=== PATIENT | male | born 1975 | race Caucasian/White ===

== ENCOUNTER → 2017-01-07 | Outpatient (CLI) | payer SELFPAY ==
--- NOTE | 2017-01-07 09:35 | US ---
EXAMINATION TYPE: US kidneys/renal and bladder DATE OF EXAM: 01/07/2017 9:25 AM COMPARISON: NONE CLINICAL HISTORY: 41-year-old male with hypertension I10, Chronic Kidney disease M18.9. No pain. TECHNIQUE: Multiple sonographic images of the kidneys and bladder were obtained. FINDINGS: Right Kidney: 10.5 x 5.8 x 6.6 cm Left Kidney: 11.9 x 5.9 x 5.2 cm Right Kidney: Dromedary hump without hydronephrosis. Left Kidney: No hydronephrosis. Partial distention of the bladder limits its evaluation. Neither ureteral jet is seen to course of th e exam. IMPRESSION: No hydronephrosis. Neither ureteral jet is seen during the course of the exam.
== END | disposition home or self-care (01) ==
LOC: RADUSWWP 09:04
PROVIDERS: ATTEND Family Medicine
DX: I12.9 Hypertensive chronic kidney disease with stage 1 through stage 4 chronic kidney disease, or unspecified chronic kidney disease (principal); N18.9 Chronic kidney disease, unspecified
CPT/HCPCS: 76770

== ENCOUNTER 2023-01-28 01:20 | Inpatient (IN) | payer OTHER ==
[2023-01-28] MEDS ORDERED: SODIUM CHLORIDE 0.9% 1,000 ML IV STA (01:36)
[2023-01-28] MEDS ORDERED: ONDANSETRON 4 MG/2 ML VIAL IVP STA (01:59)
[2023-01-28] MEDS ORDERED: KETOROLAC 15 MG/ML 1 ML VIAL IVP STA (01:59)
[2023-01-28 02:16] LABS: Basophils % (A) 0 %; Eosinophils # (A) 0.1 k/uL (0-0.7); Eosinophils % (A) 1 %; HCT 50.1 % (39.0-53.0); HGB 16.8 gm/dL (13.0-17.5); Lymphocytes # (A) 1.8 k/uL (1.0-4.8); Lymphocytes % (A) 12 %; MCH 31.4 pg (25.0-35.0); MCHC 33.6 g/dL (31.0-37.0); MCV 93.5 fL (80.0-100.0); Mean Platelet Volume 8.9; Monocytes # (A) 1.2 k/uL (0-1.0); Monocytes % (A) 9 %; Neutrophils # (A) 10.9 k/uL (1.3-7.7); Neutrophils % (A) 77 %; Platelet Count 270 k/uL (150-450); RBC 5.36 m/uL (4.30-5.90); RDW 13.5 % (11.5-15.5); WBC 14.2 k/uL (3.8-10.6)
[2023-01-28 02:18] LABS: ALT 27 U/L (4-49); AST 32 U/L (17-59); African American GFR (CKD) >90 (>60 ml/min/1.73 sqM); Albumin 4.3 g/dL (3.5-5.0); Alkaline Phosphatase 71 U/L (38-126); Anion Gap 15 mmol/L; Blood Urea Nitrogen 13 mg/dL (9-20); Calcium 9.4 mg/dL (8.4-10.2); Carbon Dioxide 23 mmol/L (22-30); Chloride 102 mmol/L (98-107); Glucose 139 mg/dL (74-99); Lipase 258 U/L (23-300); Non-African American GFR(CKD) >90 (>60 ml/min/1.73 sqM); Potassium 3.7 mmol/L (3.5-5.1); Sodium 140 mmol/L (137-145); Total Protein 7.2 g/dL (6.3-8.2)
--- NOTE | 2023-01-28 02:42 | ED ---
Abdominal Pain HPI - General Chief Complaint: Abdominal Pain Stated Complaint: abd pain Time Seen by Provider: 01/28/23 01:33 Source: patient Mode of arrival: ambulatory - History of Present Illness Initial Comments: Patient is a 47 year-old male who presents to the emergency department with a chief complaint abdominal pain.Patient states earlier this morning he had upper abdominal pain that almost completely went away. He went to work, came home and had dinner and then started to have pain in his right lower abdomen with radiation to his right testicle. Patient was on a lower pain which has mostly subsided since arriving to the emergency department. He has nausea without vomiting. No fever or chills. No burning with urination, blood in the urine, urinary frequency/urgency, penile discharge. No diarrhea, constipation, blood in stool. Last bowel movement was this morning which patient states was normal. No history of kidney stone. - Related Data Allergies Allergy/AdvReac Type Severity Reaction Status Date / Time No Known Allergies Allergy Verified 01/28/23 01:30 Review of Systems ROS Statement: Those systems with pertinent positive or pertinent negative responses have been documented in the HPI. ROS Other: All systems not noted in ROS Statement are negative. Past Medical History Past Medical History: Diabetes Mellitus, Hypertension History of Any Multi-Drug Resistant Organisms: None Reported Past Surgical History: No Surgical Hx Reported Past Psychological History: No Psychological Hx Reported Smoking Status: Never smoker Past Alcohol Use History: Rare Past Drug Use History: None Reported General Exam General appearance: alert, in no apparent distress Head exam: Present: atraumatic, normocephalic, normal inspection Eye exam: Present: normal appearance, PERRL, EOMI. Absent: scleral icterus, conjunctival injection, periorbital swelling Respiratory exam: Present: normal lung sounds bilaterally. Absent: respiratory distress, wheezes, rales, rhonchi, stridor Cardiovascular Exam: Present: regular rate, normal rhythm, normal heart sounds. Absent: systolic murmur, diastolic murmur, rubs, gallop, clicks GI/Abdominal exam: Present: soft, tenderness (RLQ mild), normal bowel sounds. Absent: distended, guarding, rebound, rigid Neurological exam: Present: alert, oriented X3, CN II-XII intact Psychiatric exam: Present: normal affect, normal mood Skin exam: Present: warm, dry, intact, normal color. Absent: rash Course Vital Signs 01/28/23 01:26 Temperature 98.4 F Pulse Rate 93 Respiratory 16 Rate Blood Pressure 128/82 O2 Sat by Pulse 98 Oximetry Medical Decision Making - Medical Decision Making Was pt. sent in by a medical professional or institution (ERIN Mercedes, [employer], urgent care, hospital, or jail...) When possible be specific @ -No Did you speak to anyone other than the patient for history (EMS, parent, family, police, friend...)? What history was obtained from this source @ -No Did you review nursing and triage notes (agree or disagree)? Why? @ -I reviewed and agree with nursing and triage notes Were old charts reviewed (outside hosp., previous admission, EMS record, old EKG, old radiological studies, urgent care reports/EKG's, jail records)? Report findings @ -No old charts were reviewed Differential Diagnosis (chest pain, altered mental status, abdominal pain women, abdominal pain men, vaginal bleeding, weakness, fever, dyspnea, syncope, headache, dizziness, GI bleed, back pain, seizure, CVA, palpatations, mental health)? @ -Differential Abdominal Pain Men: Appendicitis, cholecystitis, diverticulosis, ischemic bowel, pancreatitis, hepatitis, UTI, gastroenteritis, AAA, incarcerated hernia, bowel obstruction, constipation, inflammatory bowel, hepatitis, peptic ulcer disease, splenic infarction, perforated viscus, testicular torsion, this is not meant to be an all-inclusive list EKG interpreted by me (3pts min.). @ -As above X-rays interpreted by me (1pt min.). @ -None done CT interpreted by me (1pt min.). @ -Yes, CT the abdomen and pelvis shows acute appendicitis. There are also incidental findings including cirrhosis and splenomegaly suggestive of portal hypertensiion. Trace ascites. Mildly enlarged prostate with thick bladder wall U/S interpreted by me (1pt. min.). @ -None done What testing was considered but not performed or refused? (CT, X-rays, U/S, labs)? Why? @ -None What meds were considered but not given or refused? Why? @ -None Did you discuss the management of the patient with other professionals (professionals i.e. ERIN Mercedes, [employer] WORKER, lab, RT, psych nurse, social science research assistant, hazardous substances engineer, te acher, community service patrol officer, caseworker protective services)? Give summary @ -No Was smoking cessation discussed for >3mins.? @ -No Was critical care preformed (if so, how long)? @ -No Were there social determinants of health that impacted care today? How? (Homelessness, low income, unemployed, alcoholism, drug addiction, transportation, low edu. Level, literacy, decrease access to med. care, fci, rehab)? @ -No Was there de-escalation of care discussed even if they declined (Discuss DNR or withdrawal of care, Hospice)? DNR status @ -No What co-morbidities impacted this encounter? (DM, HTN, Smoking, COPD, CAD, Cancer, CVA, ARF, Chemo, Hep., AIDS, mental health diagnosis, sleep apnea, morbid obesity)? @ -None Was patient admitted / discharged? Hospital course, mention meds given and rou te, prescriptions, significant lab abnormalities, going to OR and other pertinent info. @ -Patient presenting for abdominal pain.Well-appearing and in no apparent distress. Has little pain currently. Laboratory studies obtained. There is leukocytosis of 14.2 with left shift. Other laboratory studies are relatively unremarkable. CT the abdomen and pelvis shows acute appendicitis without evidence of free fluid or abscess. Blood cultures obtained IV antibiotics initiated. Results discussed with patient who will be admitted to Dr. Alston Undiagnosed new problem with uncertain prognosis? @ -No Drug Therapy requiring intensive monitoring for toxicity (Heparin, Nitro, Insulin, Cardizem)? @ -No Were any procedures done? @ -No Diagnosis/symptom? @ -appendicitis Acute, or Chronic, or Acute on Chronic? @ -acute Uncomplicated (without systemic symptoms) or Complicated (systemic symptoms)? @ -uncomplicated Side effects of treatment? @ -No Exacerbation, Progression, or Severe Exacerbation? @ -No Poses a threat to life or bodily function? How? (Chest pain, USA, PA, pneumonia, PE, COPD, DKA, ARF, appy, cholecystitis, CVA, Diverticulitis, Homicidal, Suicidal, threat to staff... and all critical care pts) @ -No Dr. Biswas is my attending - Lab Data Result diagrams: 01/28/23 01:47 01/28/23 01:47 Lab Results 01/28/23 01/28/23 01/28/23 Range/Units 01:47 01:47 01:47 WBC 14.2 H (3.8-10.6) k/uL RBC 5.36 (4.30-5.90) m/uL Hgb 16.8 (13.0-17.5) gm/dL Hct 50.1 (39.0-53.0) % MCV 93.5 (80.0-100.0) fL MCH 31.4 (25.0-35.0) pg MCHC 33.6 (31.0-37.0) g/dL RDW 13.5 (11.5-15.5) % Plt Count 270 (150-450) k/uL MPV 8.9 Neutrophils % 77 % Lymphocytes % 12 % Monocytes % 9 % Eosinophils % 1 % Basophils % 0 % Neutrophils # 10.9 H (1.3-7.7) k/uL Lymphocytes # 1.8 (1.0-4.8) k/uL Monocytes # 1.2 H (0-1.0) k/uL Eosinophils # 0.1 (0-0.7) k/uL Basophils # 0.0 (0-0.2) k/uL Sodium 140 (137-145) mmol/L Potassium 3.7 (3.5-5.1) mmol/L Chloride 102 (98-107) mmol/L Carbon Dioxide 23 (22-30) mmol/L Anion Gap 15 mmol/L BUN 13 (9-20) mg/dL Creatinine 0.74 (0.66-1.25) mg/dL Est GFR (CKD-EPI)AfAm >90 (>60 ml/min/1.73 sqM) Est GFR (CKD-EPI)NonAf >90 (>60 ml/min/1.73 sqM) Glucose 139 H (74-99) mg/dL Plasma Lactic Acid Marcel 1.3 (0.7-2.0) mmol/L Calcium 9.4 (8.4-10.2) mg/dL Total Bilirubin 1.0 (0.2-1.3) mg/dL AST 32 (17-59) U/L ALT 27 (4-49) U/L Alkaline Phosphatase 71 (38-126) U/L Total Protein 7.2 (6.3-8.2) g/dL Albumin 4.3 (3.5-5.0) g/dL Lipase 258 (23-300) U/L Urine Color Urine Appearance (Clear) Urine pH (5.0-8.0) Ur Specific [place] (1.001-1.035) Urine Protein (Negative) Urine Glucose (UA) (Negative) Urine Ketones (Negative) Urine Blood (Negative) Urine Nitrite (Negative) Urine Bilirubin (Negative) Urine Urobilinogen (<2.0) mg/dL Ur Leukocyte Esterase (Negative) 01/28/23 Range/Units 02:24 WBC (3.8-10.6) k/uL RBC (4.30-5.90) m/uL Hgb (13.0-17.5) gm/dL Hct (39.0-53.0) % MCV (80.0-100.0) fL MCH (25.0-35.0) pg MCHC (31.0-37.0) g/dL RDW (11.5-15.5) % Plt Count (150-450) k/uL MPV Neutrophils % % Lymphocytes % % Monocytes % % Eosinophils % % Basophils % % Neutrophils # (1.3-7.7) k/uL Lymphocytes # (1.0-4.8) k/uL Monocytes # (0-1.0) k/uL Eosinophils # (0-0.7) k/uL Basophils # (0-0.2) k/uL Sodium (137-145) mmol/L Potassium (3.5-5.1) mmol/L Chloride (98-107) mmol/L Carbon Dioxide (22-30) mmol/L Anion Gap mmol/L BUN (9-20) mg/dL Creatinine (0.66-1.25) mg/dL Est GFR (CKD-EPI)AfAm (>60 ml/min/1.73 sqM) Est GFR (CKD-EPI)NonAf (>60 ml/min/1.73 sqM) Glucose (74-99) mg/dL Plasma Lactic Acid Marcel (0.7-2.0) mmol/L Calcium (8.4-10.2) mg/dL Total Bilirubin (0.2-1.3) mg/dL AST (17-59) U/L ALT (4-49) U/L Alkaline Phosphatase (38-126) U/L Total Protein (6.3-8.2) g/dL Albumin (3.5-5.0) g/dL Lipase (23-300) U/L Urine Color Yellow Urine Appearance Clear (Clear) Urine pH 6.0 (5.0-8.0) Ur Specific [place] 1.032 (1.001-1.035) Urine Protein Trace H (Negative) Urine Glucose (UA) Negative (Negative) Urine Ketones 1+ H (Negative) Urine Blood Negative (Negative) Urine Nitrite Negative (Negative) Urine Bilirubin Negative (Negative) Urine Urobilinogen <2.0 (<2.0) mg/dL Ur Leukocyte Esterase Negative (Negative) Disposition Clinical Impression: Appendicitis Disposition: ADMITTED IP TO THIS HOSP Condition: Fair Referrals: Chris Keith MD [Primary Care Provider] - 1-2 days
[2023-01-28 02:51] LABS: Appearance,Urine Clear (Clear); Bilirubin,Urine Negative (Negative); Blood,Urine Negative (Negative); Color,Urine Yellow; Glucose,Urine (UA) Negative (Negative); Ketones,Urine 1+ (Negative); Leukocyte Esterase,Urine Negative (Negative); Nitrite,Urine Negative (Negative); Protein,Urine Trace (Negative); Specific Gravity,Urine 1.032 (1.001-1.035); Urobilinogen,Urine <2.0 mg/dL (<2.0)
--- NOTE | 2023-01-28 03:15 | CT ---
EXAM: CT Abdomen and Pelvis Without Intravenous Contrast CLINICAL HISTORY: ITS.REASON CT Reason: pain TECHNIQUE: Axial computed tomography images of the abdomen and pelvis without intravenous contrast. CTDI is 15.7 mGy and DLP is 1043.4 mGy-cm. This CT exam was performed using one or more of the following dose reduction techniques: automated exposure control, adjustment of the mA and/or kV according to patient size, and/or use of iterative reconstruction technique. COMPARISON: No relevant prior studies available. FINDINGS: ABDOMEN: Liver: nodular . Gallbladder and bile ducts: cholelithiasis. Pancreas: No ductal dilation. Spleen: enlarged. Adrenals: Unremarkable. Kidneys and ureters: No obstructing stones. No hydronephrosis. Stomach and bowel: No bowel obstruction. No bowel wall thickening. Colonic diverticulosis. PELVIS: Appendix: Thickened to 15 mm with high density material. Bladder: No stones. Thickened bladder Reproductive: Enlarged ABDOMEN and PELVIS: Intraperitoneal space: Trace ascites. Bones/joints: No acute fractures. Moderate spinal canal stenosis at L3-4 from degenerative changes. Soft tissues: Unremarkable. Vasculature: No abdominal aortic aneurysm. Lymph nodes: No enlarged lymph nodes. IMPRESSION: 1. Acute appendicitis. 2. Cirrhosis and splenomegaly. Suggestive of portal hypertension. Trace ascites. 3. Bowel wall likely not covered for free 4. Mildly enlarged prostate with thick bladder wall
[2023-01-28] MEDS ORDERED: PIPERACILLIN-TAZOBACTAM 3.375 GM in SODIUM CHLORIDE 0.9% 100 ML IVPB STA (03:19)
[2023-01-28] MEDS ORDERED: NALOXONE 0.4 MG/ML 1 ML VIAL IV PRN (03:31)
[2023-01-28] MEDS ORDERED: MORPHINE SULFATE 4 MG/ML SYRINGE IVP STA (03:39)
[2023-01-28] MEDS ORDERED: PIPERACILLIN-TAZOBACTAM 3.375 GM in SODIUM CHLORIDE 0.9% 100 ML IVPB ONE (03:50)
[2023-01-28] MEDS: SODIUM CHLORIDE 0.9% 1,000 ML IV SCH ×4 (03:58→20:30)
[2023-01-28] MEDS ORDERED: HYDROmorphone 1 MG/ML 1 ML SYRINGE IM PRN (06:59)
[2023-01-28] MEDS ORDERED: ONDANSETRON 4 MG/2 ML VIAL IVP PRN (07:00)
[2023-01-28] MEDS: HYDROmorphone 1 MG/ML 1 ML SYRINGE IVP PRN ×2 (07:05→10:56)
[2023-01-28] MEDS ORDERED: DEXTROSE 50% SYRINGE 50 ML IVP PRN ×2 (08:11)
--- NOTE | 2023-01-28 08:30 | P.CONS ---
History of Present Illness - Reason for Consult Consult date: 01/28/23 Diabetes with medical management - Chief Complaint Abdominal pain - History of Present Illness This is a 47-year-old white male who is essentially admitted after having epigastric pain. He came home from work and started relaxing. 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 The patient was watching a movie and suddenly developed right lower quadrant pain. Previously when he came home with epigastric pain, Motrin relieved his symptomatology. He felt as though he is going to have diarrhea but the pain did not resolve. Evaluation in the ER showed computed tomography scan with acute appendicitis. Patient has an underlying history of hypertension diabetes he's had significant great control but blood sugar has been slightly elevated last several days. No sweats no c hest pain Review of Systems Constitutional: Denies fever Eyes: denies blurred vision, denies pain Ears, nose, mouth and throat: Denies headache, Denies sore throat Cardiovascular: Denies chest pain, Denies shortness of breath Respiratory: Denies cough Gastrointestinal: Reports abdominal pain, Reports bloating, Denies BRBPR Musculoskeletal: Denies myalgias Past Medical History Past Medical History: Diabetes Mellitus, Hypertension History of Any Multi-Drug Resistant Organisms: None Reported Past Surgical History: No Surgical Hx Reported Past Psychological History: No Psychological Hx Reported Smoking Status: Never smoker Past Alcohol Use History: Rare Past Drug Use History: None Reported Medications and Allergies Home Medications Medication Instructions Recorded Confirmed Type Cetirizine HCl [Zyrtec] 10 mg PO HS 01/28/23 01/28/23 History Dulaglutide [Trulicity] 1.5 mg SQ FR 01/28/23 01/28/23 History Fluticasone Nasal [place] [Flonase 2 spr EA NOSTRIL DAILY 01/28/23 01/28/23 History Nasal [place]] Irbesartan/Hydrochlorothiazide 1 tab PO HS 01/28/23 01/28/23 History [Avalide 300-12.5 mg Tablet] Magnesium Oxide [Magnesium] 500 mg PO HS 01/28/23 01/28/23 History Allergies Allergy/AdvReac Type Severity Reaction Status Date / Time No Known Allergies Allergy Unverified 01/28/23 07:32 Physical Exam Vitals: Vital Signs Temp Pulse Resp BP Pulse Ox 01/28/23 07:00 98.6 F 80 16 110/68 92 L 01/28/23 05:19 98.6 F 82 18 106/58 97 01/28/23 01:26 98.4 F 93 16 128/82 98 Intake and Output 01/27/23 01/28/23 01/28/23 22:59 06:59 14:59 Other: Weight 104.78 kg - Constitutional General appearance: average body habitus, cooperative, no disheveled - Respiratory Respiratory: bilateral: CTA - Cardiovascular Rhythm: regular Heart sounds: normal: S1, S2 Abnormal Heart Sounds: no S3 Gallop - Gastrointestinal General gastrointestinal: distended, tenderness Localized gastrointestinal: tender: RLQ - Integumentary Integumentary: no cellulitis - Psychiatric Psychiatric: A&O x's 3 Results CBC & Chem 7: 01/28/23 01:47 01/28/23 01:47 Labs: Abnormal Lab Results - Last 24 Hours (Table) 01/28/23 01/28/23 01/28/23 Range/Units 01:47 01:47 02:24 WBC 14.2 H (3.8-10.6) k/uL Neutrophils # 10.9 H (1.3-7.7) k/uL Monocytes # 1.2 H (0-1.0) k/uL Glucose 139 H (74-99) mg/dL Urine Protein Trace H (Negative) Urine Ketones 1+ H (Negative) Assessment and Plan (1) Diabetes Current Visit: Yes Status: Acute Code(s): E11.9 - TYPE 2 DIABETES MELLITUS WITHOUT COMPLICATIONS SNOMED Code(s): 83781396 (2) Hypertension Current Visit: Yes Status: Acute Code(s): I10 - ESSENTIAL (PRIMARY) HYPERTENSION SNOMED Code(s): 75271545 (3) Appendicitis Current Visit: Yes Status: Acute Code(s): K37 - UNSPECIFIED APPENDICITIS SNOMED Code(s): 49837434 Plan: Surgical intervention pending. Prep Place on sliding scale. Check CBC and CMP in a.m. Prognosis and outcomes discussed with the patient. He understands risks and benefits. We'll continue to follow. Appreciate consultation
[2023-01-28] MEDS ORDERED: IV FLUID CONTINUATION 1,000 ML IV ONE (13:28)
[2023-01-28 13:30] LABS: Glucose,Whole Blood 140 mg/dL (70-110)
[2023-01-28] MEDS ORDERED: DEXAMETHASONE SOD PHOSPHATE 4 MG/ML 1 ML VIAL IV ONE (13:43)
[2023-01-28] MEDS ORDERED: ONDANSETRON 4 MG/2 ML VIAL IVP ONE (13:43)
[2023-01-28] MEDS ORDERED: HEPARIN SODIUM,PORCINE/PF 5,000 UNIT/0.5 ML SYRINGE SQ ONE (13:59)
[2023-01-28] MEDS ORDERED: metroNIDAZOLE-NS PMX 500 MG in SALINE 1 100ML.BAG IVPB STA (14:02)
[2023-01-28] MEDS ORDERED: NEOSTIGMINE 1 MG/ML 10 ML VIAL ONE (14:24)
[2023-01-28] MEDS ORDERED: SODIUM CHLORIDE 0.9% 100 ML BAG ONE (14:24)
[2023-01-28] MEDS ORDERED: fentaNYL (PF) 50 MCG/ML 2 ML AMP ONE (14:24)
[2023-01-28] MEDS ORDERED: ROCURONIUM 10 MG/ML (5 ML VIAL) IV ONE (14:24)
[2023-01-28] MEDS ORDERED: PROPOFOL 10 MG/ML 50 ML VIAL IV ONE (14:24)
[2023-01-28] MEDS ORDERED: LIDOCAINE 2% INJ 20 MG/ML (2 ML VIAL) ONE (14:24)
[2023-01-28] MEDS ORDERED: HYDROmorphone (PF) 1 MG/ML ONE (14:24)
[2023-01-28] MEDS ORDERED: GLYCOPYRROLATE 0.2 MG/ML 2 ML VIAL ONE (14:24)
[2023-01-28] MEDS ORDERED: KETOROLAC 15 MG/ML 1 ML VIAL ONE (14:24)
[2023-01-28] MEDS ORDERED: MIDAZOLAM 2 MG/2 ML VIAL ONE (14:24)
[2023-01-28] MEDS ORDERED: SUCCINYLCHOLINE CHLORIDE 200 MG/10 ML VIAL IV ONE (14:24)
[2023-01-28] MEDS ORDERED: ceFAZolin 1,000 MG VIAL ONE (14:24)
[2023-01-28] MEDS ORDERED: PHENYLEPHRINE-0.9% NACL SYG 1,000 MCG/10 ML SYRINGE ONE (14:24)
[2023-01-28] MEDS ORDERED: SODIUM CHLORIDE 0.9% 100 ML with ceFAZolin 2,000 MG IV ONE ×2 (14:27)
[2023-01-28] MEDS ORDERED: BUPIVACAINE (PF) 0.25% 30 ML VIAL SQ ONE ×3 (14:32→14:49)
--- NOTE | 2023-01-28 14:32 | P.GSHP ---
History of Present Illness H&P Date: 01/28/23 Chief Complaint: acute appendicitis 47-year-old male came to the hospital yesterday with right lower quadrant abdominal pain. Pain began possibly Tuesday definite was present yesterday while he was at work. He had some chills. Some nausea. No vomiting. Past Medical History Past Medical History: Diabetes Mellitus, Hypertension History of Any Multi-Drug Resistant Organisms: None Reported Past Surgical History: Adenoidectomy, Tonsillectomy Additional Past Surgical History / Comment(s): UP3, sinus x2 Past Anesthesia/Blood Transfusion Reactions: Unable to Obtain Past Psychological History: No Psychological Hx Reported Smoking Status: Never smoker Past Alcohol Use History: Rare Past Drug Use History: None Reported Medications and Allergies Home Medications Medication Instructions Recorded Confirmed Type Cetirizine HCl [Zyrtec] 10 mg PO HS 01/28/23 01/28/23 History Dulaglutide [Trulicity] 1.5 mg SQ FR 01/28/23 01/28/23 History Fluticasone Nasal [place] [Flonase 2 spr EA NOSTRIL DAILY 01/28/23 01/28/23 History Nasal [place]] Irbesartan/Hydrochlorothiazide 1 tab PO HS 01/28/23 01/28/23 History [Avalide 300-12.5 mg Tablet] Magnesium Oxide [Magnesium] 500 mg PO HS 01/28/23 01/28/23 History Allergies Allergy/AdvReac Type Severity Reaction Status Date / Time No Known Allergies Allergy Unverified 01/28/23 07:32 Surgical - Exam Vital Signs Temp Pulse Resp BP Pulse Ox 98.4 F 93 16 128/82 98 01/28/23 01:26 01/28/23 01:26 01/28/23 01:26 01/28/23 01:26 01/28/23 01:26 Physical exam: General: Well-developed, well-nourished HEENT: Normocephalic, sclerae nonicteric Abdomen: Right lower quadrant tenderness, nondistended Extremities: No edema Neuro: Alert and oriented Results - Labs 01/28/23 01:47 01/28/23 01:47 Abnormal Lab Results - Last 24 Hours (Table) 01/28/23 01/28/23 01/28/23 Range/Units 01:47 01:47 02:24 WBC 14.2 H (3.8-10.6) k/uL Neutrophils # 10.9 H (1.3-7.7) k/uL Monocytes # 1.2 H (0-1.0) k/uL Glucose 139 H (74-99) mg/dL POC Glucose (mg/dL) (70-110) mg/dL Urine Protein Trace H (Negative) Urine Ketones 1+ H (Negative) 01/28/23 Range/Units 13:25 WBC (3.8-10.6) k/uL Neutrophils # (1.3-7.7) k/uL Monocytes # (0-1.0) k/uL Glucose (74-99) mg/dL POC Glucose (mg/dL) 140 H (70-110) mg/dL Urine Protein (Negative) Urine Ketones (Negative) Diabetes panel 01/28/23 Range/Units 01:47 Sodium 140 (137-145) mmol/L Potassium 3.7 (3.5-5.1) mmol/L Chloride 102 (98-107) mmol/L Carbon Dioxide 23 (22-30) mmol/L BUN 13 (9-20) mg/dL Creatinine 0.74 (0.66-1.25) mg/dL Glucose 139 H (74-99) mg/dL Calcium 9.4 (8.4-10.2) mg/dL AST 32 (17-59) U/L ALT 27 (4-49) U/L Alkaline Phosphatase 71 (38-126) U/L Total Protein 7.2 (6.3-8.2) g/dL Albumin 4.3 (3.5-5.0) g/dL Calcium panel 01/28/23 Range/Units 01:47 Calcium 9.4 (8.4-10.2) mg/dL Albumin 4.3 (3.5-5.0) g/dL Pituitary panel 01/28/23 Range/Units 01:47 Sodium 140 (137-145) mmol/L Potassium 3.7 (3.5-5.1) mmol/L Chloride 102 (98-107) mmol/L Carbon Dioxide 23 (22-30) mmol/L BUN 13 (9-20) mg/dL Creatinine 0.74 (0.66-1.25) mg/dL Glucose 139 H (74-99) mg/dL Calcium 9.4 (8.4-10.2) mg/dL Adrenal panel 01/28/23 Range/Units 01:47 Sodium 140 (137-145) mmol/L Potassium 3.7 (3.5-5.1) mmol/L Chloride 102 (98-107) mmol/L Carbon Dioxide 23 (22-30) mmol/L BUN 13 (9-20) mg/dL Creatinine 0.74 (0.66-1.25) mg/dL Glucose 139 H (74-99) mg/dL Calcium 9.4 (8.4-10.2) mg/dL Total Bilirubin 1.0 (0.2-1.3) mg/dL AST 32 (17-59) U/L ALT 27 (4-49) U/L Alkaline Phosphatase 71 (38-126) U/L Total Protein 7.2 (6.3-8.2) g/dL Albumin 4.3 (3.5-5.0) g/dL Assessment and Plan (1) Appendicitis Narrative/Plan: 47-year-old male with acute appendicitis. Will proceed with laparoscopic, possible open appendectomy at this time. Risks of bleeding, infection, abscess, hernia, bladder and bowel injury, ureteral injury, conversion to an open procedure reviewed. He understands and wishes to proceed. Current Visit: Yes Status: Acute Code(s): K37 - UNSPECIFIED APPENDICITIS SNOMED Code(s): 84467228
[2023-01-28] MEDS ORDERED: LACTATED RINGERS 1,000 ML IV ONE (14:49)
[2023-01-28] MEDS ORDERED: ACETAMINOPHEN TAB 325 MG TAB PO PRN (15:49)
[2023-01-28] MEDS ORDERED: HYDROmorphone 0.5 MG/0.5 ML SYRINGE IVP PRN (15:49)
[2023-01-28] MEDS ORDERED: HYDROcodone/APAP 5-325MG 1 EACH TAB PO PRN ×2 (15:49)
--- NOTE | 2023-01-28 16:03 | P.OP ---
Date of Procedure: 01/28/23 Procedure(s) Performed: PREOPERATIVE DIAGNOSIS: Acute appendicitis POSTOPERATIVE DIAGNOSIS: Ruptured acute appendicitis with peritonitis PROCEDURE: Laparoscopic appendectomy SURGEON: Gamaliel EBL: 10 mL ANESTHESIA: General COMPLICATIONS: None OPERATIVE PROCEDURE: The patient was brought and placed on the operating table in the supine position. The patient was placed under general anesthesia. The abdomen was prepped and draped in the usual sterile fashion. A small vertical infraumbilical incision was made. The fascia was retracted anteriorly with Ricci forceps. The Veress needle was advanced into the peritoneal cavity. The saline drop test was normal. Insufflation took place to 15 mmHg. A 5 mm trocar was then placed. An additional 5 mm suprapubic trocar was placed under direct visualization as well as a 12 mm left lower quadrant trocar under direct visualization. The patient had purulent fluid within the right lower quadrant and pelvis. This was evacuated immediately. The peritoneum in the right lower quadrant was significantly inflamed and indurated consistent with peritonitis. The patient had a loop of small bowel that was chronically adherent to the right lower abdominal sidewall. Blunt dissection and sharp dissection took place to mobilize the colon and ileum medially. The veil of [place] was seen and behind that was the appendix that was gangrenous in appearance and had a perforation present. There was some stool that was evacuated from the appendix itself. Careful dissection revealed the junction with the base of the cecum. The base of the appendix was divided using a linear 45 mm intestinal stapler. The mesentery itself was then divided using the LigaSure device. The area was then irrigated. The remainder of the abdominal cavity was thoroughly irrigated at that time as well. No further purulence or bleeding was seen. The appendix was brought out of the peritoneal cavity through the left lower quadrant trocar site with an Endo Catch bag. The fascia at the 12 mm site was closed using a Maxime Viki 0 Vicryl stitch. The skin at all 3 sites was closed using 4-0 Monocryl sutures. Skin glue was then applied. DISPOSITION: Stable to recovery room
[2023-01-28] MEDS: HEPARIN SODIUM,PORCINE/PF 5,000 UNIT/0.5 ML SYRINGE SQ SCH (17:14)
[2023-01-28] MEDS: PIPERACILLIN-TAZOBACTAM 3.375 GM in SODIUM CHLORIDE 0.9% 100 ML IVPB SCH (17:15)
[2023-01-28 17:36] LABS: Glucose,Whole Blood 145 mg/dL (70-110)
[2023-01-28] MEDS: DOCUSATE 100 MG CAP PO SCH (20:31)
[2023-01-28 20:35] LABS: Glucose,Whole Blood 180 mg/dL (70-110)
[2023-01-29] MEDS: HEPARIN SODIUM,PORCINE/PF 5,000 UNIT/0.5 ML SYRINGE SQ SCH ×2 (00:49→08:56)
[2023-01-29] MEDS: PIPERACILLIN-TAZOBACTAM 3.375 GM in SODIUM CHLORIDE 0.9% 100 ML IVPB SCH ×2 (00:50→08:56)
[2023-01-29 00:52] LABS: Glucose,Whole Blood 161 mg/dL (70-110)
[2023-01-29] MEDS: SODIUM CHLORIDE 0.9% 1,000 ML IV SCH (02:28)
[2023-01-29 05:41] LABS: Glucose,Whole Blood 126 mg/dL (70-110)
[2023-01-29 07:20] VITALS: BP 111/68; PULSE 72; RESP 16; TEMP 98.5
[2023-01-29 08:04] LABS: Basophils % (A) 0 %; Eosinophils % (A) 0 %; HCT 39.8 % (39.0-53.0); Lymphocytes # (A) 0.8 k/uL (1.0-4.8); Lymphocytes % (A) 4 %; MCH 32.1 pg (25.0-35.0); MCHC 33.8 g/dL (31.0-37.0); Mean Platelet Volume 9.1; Monocytes % (A) 5 %; Neutrophils # (A) 16.8 k/uL (1.3-7.7); Neutrophils % (A) 89 %; Platelet Count 217 k/uL (150-450); RBC 4.19 m/uL (4.30-5.90); RDW 13.3 % (11.5-15.5)
[2023-01-29 08:06] LABS: HGB 13.5 gm/dL (13.0-17.5)
[2023-01-29 08:17] LABS: ALT 17 U/L (4-49); AST 21 U/L (17-59); African American GFR (CKD) >90 (>60 ml/min/1.73 sqM); Albumin 2.9 g/dL (3.5-5.0); Albumin/Globulin Ratio 1.2; Alkaline Phosphatase 51 U/L (38-126); Anion Gap 8 mmol/L; Blood Urea Nitrogen 15 mg/dL (9-20); Calcium 8.4 mg/dL (8.4-10.2); Carbon Dioxide 23 mmol/L (22-30); Chloride 103 mmol/L (98-107); Globulin 2.4 g/dL; Glucose 119 mg/dL (74-99); Non-African American GFR(CKD) >90 (>60 ml/min/1.73 sqM); Potassium 3.8 mmol/L (3.5-5.1); Sodium 134 mmol/L (137-145); Total Bilirubin 1.5 mg/dL (0.2-1.3); Total Protein 5.3 g/dL (6.3-8.2)
[2023-01-29] MEDS: DOCUSATE 100 MG CAP PO SCH (08:58)
[2023-01-29] MEDS ORDERED: PANTOPRAZOLE 40 MG/10 ML VIAL IV SCH (09:00)
[2023-01-29] MEDS ORDERED: FLUTICASONE 50MCG/SPRAY NASAL 16GM EA NOSTRIL SCH (09:00)
--- NOTE | 2023-01-29 09:29 | P.PN ---
Progress Note - Text Progress Note Date: 01/29/23 The patient feels well. He is status post laparoscopic appendectomy. He has minimal complaints of pain. On exam vital signs are stable. Abdomen soft. Patiently discharged home today. She'll follow-up Dr. Alston next week.
--- NOTE | 2023-01-29 13:06 | P.PN ---
Subjective Progress Note Date: 01/29/23 This is a 47-year-old white male who is essentially admitted after having epigastric pain. He came home from work and started relaxing. 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 The patient was watching a movie and suddenly developed right lower quadrant pain. Previously when he came home with epigastric pain, Motrin relieved his symptomatology. He felt as though he is going to have diarrhea but the pain did not resolve. Evaluation in the ER showed computed tomography scan with acute appendicitis. Patient has an underlying history of hypertension diabetes he's had significant great control but blood sugar has been slightly elevated last several days. No sweats no chest pain 01/29/2023 Patient is evaluated today sitting up in bed. Family at bedside. Patient is postoperative day #1 laproscopic appendectomy. He reports minimal pain 3-4 out of 10. Laproscopic incisions are clean and approximated abdomen is soft. He is wearing abdominal binder. Patient has been tolerating clear liquid diet. Passing gas. General surgery has cleared patient for discharge home on 7 days of oral augmentin twice a day. Blood pressure on the lower side and recommending to hold irbesartan/hctz combination and monitor BP at home. Patient should be provided with incentive spirometer prior to discharge. White count today is 19.0, sodium of 134, total bilirubin 1.5. Recommending labs in 2 to 3 days. Review of Systems Constitutional: Denied any fatigue denied any fever. Cardio vascular: denied any chest pain, palpitations Gastrointestinal: denied any nausea, vomiting, diarrhea Pulmonary: Denied any shortness of breath cough Neurologic denied any new focal deficits All inpatient medications were reviewed and appropriate changes in these medications as dictated in the interval history and assessment and plan. PHYSICAL EXAMINATION: GENERAL: The patient is alert and oriented x3, not in any acute distress. Well developed, well nourished. HEENT: Pupils are round and equally reacting to light. EOMI. No scleral icterus. No conjunctival pallor. Normocephalic, atraumatic. No pharyngeal erythema. No thyromegaly. CARDIOVASCULAR: S1 and S2 present. No murmurs, rubs, or gallops. PULMONARY: Chest is clear to auscultation, no wheezing or crackles. ABDOMEN: Soft, tender, nondistended, normoactive bowel sounds. No palpable organomegaly. Post surgical abdomen laproscopic incisions intact. Abdominal binder in place. MUSCULOSKELETAL: No joint swelling or deformity. EXTREMITIES: No cyanosis, clubbing, or pedal edema. NEUROLOGICAL: Gross neurological examination did not reveal any focal deficits. SKIN: No rashes. Assessment and Plan Appendicitis with sepsis present on admission postoperative day #1 laproscopic appendectomy Hypertension currently low/normotensive recommending holding blood pressure medication on discharge and monitoring BP at home. Resume when systolic above 130s. Hyponatremia recommend to repeat labs in 2 to 3 days to monitor sodium level and resume BP medication when sodium has normalized Diabetes Mellitus type 2 Leukocytosis reactive GI prophylaxis DVT prophylaxis as per primary Full Code Plan Medically cleared for discharge recommend to hold home BP medication and monitor blood pressure can resume when systolic above 130s. Additionally patient should repeat a CBC and BMP in 2 to 3 days. Follow up with PCP Dr. Keith and Dr Alston on discharge. Increase diet as tolerated. Continue with pain management and bowel regimen. Recommend to discharge home with incentive spirometer and complete 10 x an hour while awake. Thank you kindly for this consultation. The impression and plan of care has been dictated by Jagruti Ng, Nurse Practitioner as directed. Dr. Daniel MD I have performed a history and physical examination and medical decision making of this patient, discussed the same with the dictator, and agree with the dictators assessment and plan as written, documented as a scribe. Based on total visit time, I have performed more than 50% of this visit. Objective - Vital Signs Vital signs: Vital Signs Temp 98.5 F 01/29/23 06:48 Pulse 72 01/29/23 06:48 Resp 16 01/29/23 06:48 BP 111/68 01/29/23 06:48 Pulse Ox 94 L 01/29/23 06:48 FiO2 Intake & Output 01/28/23 01/29/23 01/29/23 18:59 06:59 18:59 Intake Total 1500 Output Total 3 Balance 1497 Weight 104.78 kg Intake: IV 1500 Output: Estimated Blood Loss 3 Other: Voiding Method Toilet # Voids 2 # Bowel Movements 0 - Labs CBC & Chem 7: 01/29/23 07:13 01/29/23 07:13 Labs: Abnormal Lab Results - Last 24 Hours (Table) 01/28/23 01/28/23 01/28/23 Range/Units 13:25 17:30 20:33 WBC (3.8-10.6) k/uL RBC (4.30-5.90) m/uL Neutrophils # (1.3-7.7) k/uL Lymphocytes # (1.0-4.8) k/uL Sodium (137-145) mmol/L Glucose (74-99) mg/dL POC Glucose (mg/dL) 140 H 145 H 180 H (70-110) mg/dL Total Bilirubin (0.2-1.3) mg/dL Total Protein (6.3-8.2) g/dL Albumin (3.5-5.0) g/dL 01/29/23 01/29/23 01/29/23 Range/Units 00:51 05:39 07:13 WBC 19.0 H (3.8-10.6) k/uL RBC 4.19 L (4.30-5.90) m/uL Neutrophils # 16.8 H (1.3-7.7) k/uL Lymphocytes # 0.8 L (1.0-4.8) k/uL Sodium (137-145) mmol/L Glucose (74-99) mg/dL POC Glucose (mg/dL) 161 H 126 H (70-110) mg/dL Total Bilirubin (0.2-1.3) mg/dL Total Protein (6.3-8.2) g/dL Albumin (3.5-5.0) g/dL 01/29/23 Range/Units 07:13 WBC (3.8-10.6) k/uL RBC (4.30-5.90) m/uL Neutrophils # (1.3-7.7) k/uL Lymphocytes # (1.0-4.8) k/uL Sodium 134 L (137-145) mmol/L Glucose 119 H (74-99) mg/dL POC Glucose (mg/dL) (70-110) mg/dL Total Bilirubin 1.5 H (0.2-1.3) mg/dL Total Protein 5.3 L (6.3-8.2) g/dL Albumin 2.9 L (3.5-5.0) g/dL Assessment and Plan Time with Patient: Less than 30
[2023-01-29] MEDS ORDERED: LORATADINE 10 MG TAB PO SCH (21:00)
[2023-01-29] MEDS ORDERED: MAGNESIUM OXIDE 400 MG TAB PO SCH (21:00)
== END 2023-01-29 10:43 | disposition home or self-care (01) | DRG 233 ==
LOC: EC 01:20 → 6NMEDSUR 03:32
PROVIDERS: ADMIT Surgery; ATTEND Surgery
PROC: 0DTJ4ZZ Resection of Appendix, Percutaneous Endoscopic Approach (ICD-10-PCS; principal; 2023-01-28 13:00)
DX: K35.32 Acute appendicitis with perforation, localized peritonitis, and gangrene, without abscess (principal); E87.1 Hypo-osmolality and hyponatremia; E11.9 Type 2 diabetes mellitus without complications; I10 Essential (primary) hypertension; Z79.85 Long-term (current) use of injectable non-insulin antidiabetic drugs; Z79.899 Other long term (current) drug therapy
CPT/HCPCS: 36415; 74176; 80053; 81003; 83036; 83605; 83690; 85025; 87040; 88304; 96361; 96365; 96375; 96376; 99285

== ENCOUNTER 2024-05-01 10:55 | Day surgery (SDC) | payer OTHER ==
[~2024-05-01 10:55] MED LIST: LACTATED RINGERS 1,000 ML BAG ONE; LIDOCAINE 1% INJ 10MG/ML (20 ML MDV) ONE; PROPOFOL 10 MG/ML 20 ML VIAL IV ONE
[2024-05-08] MEDS ORDERED: ENOXAPARIN 40 MG/0.4 ML SYRINGE SQ ONE ×2 (07:49)
[2024-05-08] MEDS ORDERED: SPIRONOLACTONE 25 MG TAB ONE ×2 (07:49)
[2024-05-08] MEDS ORDERED: AMIODARONE 200 MG TAB ONE ×2 (07:49)
[2024-05-08] MEDS ORDERED: allopurinoL 100 MG TAB ONE ×2 (07:49)
[2024-05-08] MEDS ORDERED: ISOSORBIDE MONONITRATE ER 60 MG TAB.ER.24H PO ONE ×2 (13:15)
[2024-05-08] MEDS ORDERED: FUROSEMIDE 10 MG/ML 4 ML VIAL ONE ×2 (13:16)
[2024-05-08] MEDS ORDERED: INSULIN ASPART (NovoLOG) 100 UNIT/ML VIAL SQ ONE ×2 (15:59)
--- NOTE | 2024-05-11 15:53 | PCN ---
PROCEDURE NOTE PREOPERATIVE DIAGNOSIS: Screening. POSTOPERATIVE DIAGNOSIS: Diverticulosis. PROCEDURE: Colonoscopy. ANESTHESIA: Sedation. SURGEON: Gamaliel. COMPLICATIONS: None. DESCRIPTION OF PROCEDURE: The patient was brought and placed on the OR table in the left decubitus position. The patient is sedated by Anesthesia at that time. The Olympus colonoscope was inserted in the anus and passed under direct visualization at the base of the cecum. From that point, we slowly withdrew the scope, inspected all organs carefully. There were no neoplastic, inflammatory, or polypoid lesions seen throughout the cecum, ascending, transverse, descending, sigmoid, or rectum. There was mild scattered diverticulosis. Digital rectal exam was normal. PLAN: 1. Resume diet. 2. Followup colonoscopy in 7-10 years. MMODL / IJN: [id number] /
== END 2024-05-01 11:40 ==
LOC: ORWHC2ENDO 10:55
PROVIDERS: ATTEND Surgery
DX: Z12.11 Encounter for screening for malignant neoplasm of colon (principal); K57.30 Diverticulosis of large intestine without perforation or abscess without bleeding; I10 Essential (primary) hypertension; E11.9 Type 2 diabetes mellitus without complications; Z79.899 Other long term (current) drug therapy; Z90.49 Acquired absence of other specified parts of digestive tract
CPT/HCPCS: 45378